=== PATIENT | female | born 1965 | race Caucasian/White ===

== ENCOUNTER 2020-03-12 21:14 | Emergency (ER) | payer BC ==
[2020-03-12] MEDS ORDERED: Ketorolac 60 MG/2 ML SDV IM ONE (22:13)
[2020-03-12] MEDS ORDERED: Lidocaine 2% Viscous Solution 15 ML Cup TOP STA (22:14)
[2020-03-12] MEDS ORDERED: Acetaminophen/oxyCODONE 325-5 MG Tab PO STA (22:14)
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
[2020-03-12] MEDS ORDERED: Diphtheria,Pertussis(Acell),Tetanus Vaccine 0.5 ML SDV IM ONE (22:37)
[2020-03-12] MEDS ORDERED: Bacitracin Oint 1 GM U/D Packet TOP ONE (23:41)
--- NOTE | 2020-03-15 09:10 | CR ---
Elbow Min 3V Lt CLINICAL HISTORY: Injury FINDINGS: There is a minimally displaced fracture through the lateral condyle of the humerus. There is slight angulation of the radial head cortex suggesting impaction fracture. Fat pads are displaced. Impression: Slightly displaced fracture through the humeral condyles with slight impaction fracture of the radius
== END 2020-03-13 00:05 | disposition home or self-care (01) ==
LOC: JP.ED 21:14
DX: S42.455A Nondisplaced fracture of lateral condyle of left humerus, initial encounter for closed fracture (principal); S80.811A Abrasion, right lower leg, initial encounter; S50.811A Abrasion of right forearm, initial encounter; V19.9XXA Pedal cyclist (driver) (passenger) injured in unspecified traffic accident, initial encounter
CPT/HCPCS: 29105; 73080; 90471; 90715; 96372; 99283; A9270; J1885

== ENCOUNTER 2020-03-17 07:23 | Day surgery (SDC) | payer BC ==
[~2020-03-17 07:23] MED LIST: Bupivacaine 0.5% 30 ML SDV ONE
[2020-03-17] MEDS ORDERED: Rocuronium 50 MG/5 ML Vial ONE (07:40)
[2020-03-17] MEDS ORDERED: Dexamethasone 4 MG/ML SDV ONE (07:40)
[2020-03-17] MEDS ORDERED: Propofol 200 MG/20 ML SDV ONE (07:40)
[2020-03-17] MEDS ORDERED: fentaNYL 250 MCG/5 ML SDV ONE (07:40)
[2020-03-17] MEDS ORDERED: Neostigmine Methylsulfate 1 MG/ML 5 ML Syringe ONE (07:40)
[2020-03-17] MEDS ORDERED: Glycopyrrolate 0.2 MG/ML 5 ML MDV ONE (07:40)
[2020-03-17] MEDS ORDERED: Ondansetron 4 MG/2 ML SDV ONE (07:40)
[2020-03-17] MEDS ORDERED: Nozin Nasal Sanitizer NASBOTH ONE (07:45)
[2020-03-17] MEDS ORDERED: Lactated Ringers 1,000 ML IV SCH (08:00)
[2020-03-17] MEDS ORDERED: ceFAZolin 2 GM in Premix Bag 1 BAG IV ONE (08:30)
[2020-03-17] MEDS ORDERED: traMADol 50 MG Tab PO ONE (11:11)
[2020-03-17] MEDS ORDERED: Ketorolac 30 MG/ML SDV IVPUSH ONE (11:30)
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
== END 2020-03-17 13:19 | disposition home or self-care (01) ==
LOC: JP.SDS 07:23
PROVIDERS: ATTEND Specialist
DX: S42.452A Displaced fracture of lateral condyle of left humerus, initial encounter for closed fracture (principal); E66.9 Obesity, unspecified; E78.5 Hyperlipidemia, unspecified; Z68.42 Body mass index [BMI] 45.0-49.9, adult; Z79.899 Other long term (current) drug therapy; V89.9XXA Person injured in unspecified vehicle accident, initial encounter
CPT/HCPCS: 24579; 36415; 76000; 80053; 85027; A9270; C1713; J0690; J1100; J1885; J2405; J2704; J2710; J3010; J3490; J7120

== ENCOUNTER 2020-06-09 09:25 | Day surgery (SDC) | payer BC ==
[2020-06-09] MEDS ORDERED: Lactated Ringers 1,000 ML IV SCH (09:45)
[2020-06-09] MEDS ORDERED: ceFAZolin 2 GM in Premix Bag 1 BAG IV ONE (10:00)
[2020-06-09] MEDS ORDERED: Nozin Nasal Sanitizer NASBOTH ONE (10:00)
[2020-06-09] MEDS ORDERED: fentaNYL 250 MCG/5 ML SDV ONE (10:05)
[2020-06-09] MEDS ORDERED: Neostigmine Methylsulfate 1 MG/ML 5 ML Syringe ONE (10:06)
[2020-06-09] MEDS ORDERED: Succinylcholine 200 MG/10 ML MDV ONE (10:06)
[2020-06-09] MEDS ORDERED: Rocuronium 50 MG/5 ML Vial ONE (10:06)
[2020-06-09] MEDS ORDERED: Propofol 200 MG/20 ML SDV ONE (10:06)
[2020-06-09] MEDS ORDERED: Ondansetron 4 MG/2 ML SDV ONE (10:06)
[2020-06-09] MEDS ORDERED: Glycopyrrolate 0.2 MG/ML 5 ML MDV ONE (10:06)
[2020-06-09] MEDS ORDERED: Dexamethasone 4 MG/ML SDV ONE (10:06)
[2020-06-09] MEDS ORDERED: Bupivacaine 0.5% 30 ML SDV ONE (10:59)
[2020-06-09] MEDS ORDERED: Sodium Chloride 0.9% 10 ML ONE (13:03)
[2020-06-09] MEDS ORDERED: ePHEDrine 50 MG/ML SDV ONE (13:03)
[2020-06-09] MEDS ORDERED: Morphine 2 MG/ML SYRINGE IVPUSH ONE (13:34)
[2020-06-09] MEDS ORDERED: Ketorolac 60 MG/2 ML SDV IM ONE (13:36)
[2020-06-09] MEDS ORDERED: Acetaminophen/oxyCODONE 325-5 MG Tab PO PRN (14:50)
--- NOTE | 2020-07-05 16:01 | OR ---
DATE OF PROCEDURE: 06/09/2020 SURGEON: Valentino Rashid MD PREOPERATIVE DIAGNOSES: Arthrofibrosis, left elbow, posttraumatic; 2 retained screws, left distal humerus. POSTOPERATIVE DIAGNOSES: Arthrofibrosis, left elbow, posttraumatic; 2 retained screws, left distal humerus. PROCEDURES: 1. Removal of cannulated screws, left distal humerus. 2. Anterior and posterior capsular release with manipulation under anesthesia, left elbow. ANESTHESIA: General. INDICATIONS: Randee is a 55-year-old female who sustained a fracture of her left lateral epicondyle with intra-articular displacement. She underwent cannulated screw fixation several weeks ago. The fracture has gone on to heal and she has been unable to regain range of motion despite physical therapy. She now presents for open capsular release and manipulation. The screws will be removed as well. Risks, benefits, potential complications of the procedure were discussed. DESCRIPTION OF PROCEDURE: After adequate anesthesia was obtained, the patient placed supine with a tourniquet about the left upper arm. The arm was prepped and draped in a sterile fashion. Arm was exsanguinated. The tourniquet inflated to 250 mmHg. Previous incision was utilized over the lateral aspect of the elbow, carried down through the subcutaneous tissues. Hemostasis obtained with electrocautery. Small incisions were made over the screw heads in the fascia and the screws were then removed without difficulty. A lateral arthrotomy was performed elevating the extensor attachments. Significant adhesions were noted anteriorly with very limited extension. A capsular release was performed with a combination of a 10 blade and elevator releasing from lateral to medial and staying against the humerus. Once this was completed, the arm could be extended much more easily, however, did not obtain full extension and she still had a block on flexion. The skin was elevated just posterior to the epicondyle and a plane was developed just lateral to the insertion of the triceps. This was carried down into an arthrotomy in the posterior compartment of the elbow, and again using a combination of scalpel and elevators, the arthrotomy was extended and capsular release was performed moving from lateral to medial and again staying against the bone and releasing the adhesions. Once this was accomplished, range of motion was assessed. With mild- to-moderate over pressure, elbow could be extended to within 3 to 4 degrees of neutral. Flexion was obtained, so that her fingers would touch the anterior shoulder. Arm was manipulated both in extension and flexion once again. The wound was then irrigated. The fascia capsule was closed with 0 Vicryl in interrupted fashion. Skin was closed with 2-0 Vicryl and a running 3-0 Monocryl. The skin incision and capsule were infiltrated with Marcaine and a sterile dressing was applied. The patient will participate in active physical therapy within 2 to 3 days and work on continued range of motion. Valentino Rashid MD /[id number]
== END 2020-06-09 15:20 | disposition home or self-care (01) ==
LOC: JP.SDS 09:25
PROVIDERS: ATTEND Specialist
DX: T84.82XA Fibrosis due to internal orthopedic prosthetic devices, implants and grafts, initial encounter (principal); E78.5 Hyperlipidemia, unspecified; E66.09 Other obesity due to excess calories; Z01.812 Encounter for preprocedural laboratory examination; Z20.828 Contact with and (suspected) exposure to other viral communicable diseases; Z68.41 Body mass index [BMI] 40.0-44.9, adult
CPT/HCPCS: 20680; 24006; 36415; 76000; 80048; 85027; 87635; A9270; J0330; J0690; J1100; J1885; J2270; J2405; J2704; J3010; J3490; J7120; J2710; U0002